=== PATIENT | female | born 1970 | race Two or more races ===

== ENCOUNTER 2024-02-22 19:49 | Inpatient (IN) | payer MEDICAID ==
[~2024-02-22] VITALS: Ht 162.6 cm; Wt 74.8 kg
[2024-02-22] MEDS: INSULIN REGULAR, HUMAN 1000 UNIT/10 ML VIAL IV ONE (00:20)
[2024-02-22 21:35] LABS: BASOPHILS % (AUTO) 0.3 % (0.0-2.0); EOSINOPHILS # (AUTO) 0.1 K/uL (0.0-0.7); EOSINOPHILS % (AUTO) 1.3 % (0.0-7.0); HEMOGLOBIN 12.4 g/dL (10.9-14.3); LYMPHOCYTES % (AUTO) 22.3 % (20.5-51.5); MEAN CORPUSCULAR HEMOGLOBIN 25.7 uug (24.7-32.8); MEAN CORPUSCULAR HGB CONC 33 g/dL (32.3-35.6); MEAN CORPUSCULAR VOLUME 78.6 fL (75.5-95.3); MONOCYTES # (AUTO) 0.7 K/uL (0.1-1.30); MONOCYTES % (AUTO) 7.7 % (0.0-11.0); NEUTROPHILS # (AUTO) 6.1 K/uL (1.8-8.9); NEUTROPHILS % (AUTO) 68.4 % (38.5-71.5); PLATELET COUNT (AUTO) 312 K/uL (179-408); RED BLOOD CELL COUNT(AUTO) 4.83 MIL/uL (3.63-4.92); RED CELL DISTRIBUTION WIDTH 15.2 % (12.3-17.7); WHITE BLOOD COUNT (AUTO) 8.9 K/uL (3.8-11.8)
[2024-02-22 21:36] LABS: DIFFERENTIAL COMMENT 1
[2024-02-22 21:56] LABS: *BILIRUBIN,URIN NEGATIVE (NEGATIVE); *BLOOD, URINE NEGATIVE (NEGATIVE); *CLARITY,URINE CLEAR (CLEAR); *COLOR,URINE YELLOW (YELLOW); *KETONES,URINE NEGATIVE (NEGATIVE); *PROTEIN,URINE NEGATIVE (NEGATIVE); *UROBILINOGEN,URINE 0.2 E.U./dl (NORMAL); LEUKOCYTE ESTERASE ,URINE NEGATIVE (NEGATIVE); NITRITE, URINE NEGATIVE (NEGATIVE); UGLUCOSE 2+ (NEGATIVE)
[2024-02-22 21:56] LABS: ALANINE AMINOTRANSFERASE 22 U/L (14-59); ALBUMIN 3.3 g/dL (3.4-5.0); ALKALINE PHOSPHATASE 86 U/L (50-136); ASPARTATE AMINOTRANSFERASE < 5 U/L (15-37); BILIRUBIN,DIRECT 0.1 mg/dL (0.0-0.2); BILIRUBIN,TOTAL 0.4 mg/dL (0.2-1.0); CALCIUM 8.7 mg/dL (8.5-10.1); CARBON DIOXIDE 30 mmol/L (21-32); CHLORIDE 101 mmol/L (98-107); CREATININE 0.8 mg/dL (0.6-1.3); NT-PRO BNP 88 pg/mL (0-125); POTASSIUM 4.3 mmol/L (3.5-5.1); SODIUM SERUM 135 mmol/L (136-145); TOTAL PROTEIN, SERUM 7.1 g/dL (6.4-8.2); UREA NITROGEN, BLOOD 12 mg/dL (7-18)
[2024-02-22] MEDS ORDERED: ONDANSETRON 4 MG/2 ML VIAL ONE (21:56)
[2024-02-22] MEDS ORDERED: MORPHINE SULFATE 4 MG/1 ML DISP.SYRIN ONE (21:57)
[2024-02-22 22:01] LABS: GLUCOSE 413 mg/dL (74-106)
[2024-02-22] MEDS: MORPHINE SULFATE 2 MG/1 ML DISP.SYRIN IV ONE (22:10)
[2024-02-22] MEDS: ONDANSETRON 4 MG/2 ML VIAL IV ONE (22:10)
[2024-02-23] MEDS ORDERED: HUM INSULIN NPH/REG INSULIN HM 70/30 1000 UNITS/10 ML VIAL SQ ONE (00:35)
[2024-02-23] MEDS ORDERED: METF-441 PO (02:16)
[2024-02-23] MEDS ORDERED: ATOR10TA PO (02:16)
[2024-02-23] MEDS ORDERED: GLIP5TAB13 PO (02:16)
[2024-02-23] MEDS ORDERED: MAGNESIUM HYDROXIDE 30 ML LIQUID UDC PO PRN (04:15)
[2024-02-23] MEDS ORDERED: REMEDY ESSENTIAL ZINC PASTE 113 GM TP PRN (04:15)
[2024-02-23] MEDS ORDERED: ACETAMINOPHEN 325 MG TABLET PO PRN (04:15)
[2024-02-23] MEDS ORDERED: ONDANSETRON 4 MG/2 ML VIAL IV PRN (04:15)
[2024-02-23] MEDS ORDERED: DEXTROSE 50% 50 ML DISP.SYRIN IV PRN (04:15)
[2024-02-23 08:00] VITALS: BP 121/71; TEMP 97; O2SAT 98
[2024-02-23] MEDS: BLOOD SUGAR DIAGNOSTIC 1 EACH STRIP VI SCH (08:13)
[2024-02-23 08:43] LABS: CALCIUM 8.3 mg/dL (8.5-10.1); CREATININE 0.6 mg/dL (0.6-1.3); MAGNESIUM 1.6 mg/dL (1.8-2.4); PHOSPHOROUS 2.8 mg/dL (2.5-4.9); POTASSIUM 3.9 mmol/L (3.5-5.1)
[2024-02-23] MEDS: PANTOPRAZOLE SODIUM 40 MG VIAL IV SCH (08:59)
[2024-02-23] MEDS: INSULIN REGULAR, HUMAN 1000 UNIT/10 ML VIAL SQ PRN (09:00)
[2024-02-23 09:08] LABS: BASOPHILS % (AUTO) 0.4 % (0.0-2.0); EOSINOPHILS # (AUTO) 0.1 K/uL (0.0-0.7); EOSINOPHILS % (AUTO) 1.3 % (0.0-7.0); HEMATOCRIT 37.8 % (31.2-41.9); HEMOGLOBIN 12.3 g/dL (10.9-14.3); LYMPHOCYTES # (AUTO) 1.8 K/uL (0.8-4.8); LYMPHOCYTES % (AUTO) 26.9 % (20.5-51.5); MEAN CORPUSCULAR HEMOGLOBIN 25.6 uug (24.7-32.8); MEAN CORPUSCULAR HGB CONC 33 g/dL (32.3-35.6); MEAN CORPUSCULAR VOLUME 78.4 fL (75.5-95.3); MONOCYTES # (AUTO) 0.4 K/uL (0.1-1.30); MONOCYTES % (AUTO) 6.5 % (0.0-11.0); NEUTROPHILS # (AUTO) 4.3 K/uL (1.8-8.9); NEUTROPHILS % (AUTO) 64.9 % (38.5-71.5); PLATELET COUNT (AUTO) 296 K/uL (179-408); RED BLOOD CELL COUNT(AUTO) 4.82 MIL/uL (3.63-4.92); RED CELL DISTRIBUTION WIDTH 14.8 % (12.3-17.7); WHITE BLOOD COUNT (AUTO) 6.7 K/uL (3.8-11.8)
[2024-02-23 09:10] LABS: DIFFERENTIAL COMMENT 1
[2024-02-23 12:00] VITALS: BP 121/56; TEMP 97.2; O2SAT 97
[2024-02-23] MEDS ORDERED: GLIM4TAB37 PO (12:18)
[2024-02-23] MEDS ORDERED: ATOR80TA PO (12:18)
[2024-02-23] MEDS ORDERED: ASPI81TA31 PO (12:18)
[2024-02-23] MEDS: MAGNESIUM OXIDE 400 MG TABLET PO ONE (13:42)
[2024-02-23 16:00] VITALS: BP 118/60; TEMP 97.2; O2SAT 97
[2024-02-23 19:30] VITALS: BP 133/67; TEMP 98.2; O2SAT 100
[2024-02-24 00:21] VITALS: BP 103/55; TEMP 97.6; O2SAT 95
[2024-02-24 04:26] VITALS: BP 144/77; TEMP 97.8; O2SAT 96
[2024-02-24 07:13] LABS: BASOPHILS % (AUTO) 0.4 % (0.0-2.0); EOSINOPHILS # (AUTO) 0.2 K/uL (0.0-0.7); EOSINOPHILS % (AUTO) 1.9 % (0.0-7.0); HEMOGLOBIN 12.9 g/dL (10.9-14.3); LYMPHOCYTES # (AUTO) 2.1 K/uL (0.8-4.8); LYMPHOCYTES % (AUTO) 27.3 % (20.5-51.5); MEAN CORPUSCULAR HEMOGLOBIN 25.8 uug (24.7-32.8); MEAN CORPUSCULAR HGB CONC 33 g/dL (32.3-35.6); MEAN CORPUSCULAR VOLUME 78.2 fL (75.5-95.3); MONOCYTES # (AUTO) 0.4 K/uL (0.1-1.30); MONOCYTES % (AUTO) 5.5 % (0.0-11.0); NEUTROPHILS # (AUTO) 5.1 K/uL (1.8-8.9); NEUTROPHILS % (AUTO) 64.9 % (38.5-71.5); PLATELET COUNT (AUTO) 302 K/uL (179-408); RED BLOOD CELL COUNT(AUTO) 4.99 MIL/uL (3.63-4.92); RED CELL DISTRIBUTION WIDTH 15.1 % (12.3-17.7); WHITE BLOOD COUNT (AUTO) 7.8 K/uL (3.8-11.8)
[2024-02-24 07:28] LABS: DIFFERENTIAL COMMENT 1
[2024-02-24 07:32] LABS: CALCIUM 8.4 mg/dL (8.5-10.1); CREATININE 0.6 mg/dL (0.6-1.3); POTASSIUM 4.1 mmol/L (3.5-5.1)
[2024-02-24 07:39] VITALS: BP 112/56; TEMP 97.2; O2SAT 97
[2024-02-24] MEDS: ASPIRIN 81 MG TAB.CHEW PO SCH (08:38)
[2024-02-24] MEDS: GLIMEPIRIDE 4 MG TABLET PO SCH (08:38)
[2024-02-24] MEDS: ATORVASTATIN 40 MG TABLET PO SCH (08:38)
[2024-02-24] MEDS ORDERED: LISI10TA29 PO (08:43)
[2024-02-24] MEDS: METFORMIN HCL 850 MG TABLET PO SCH (10:25)
== END 2024-02-24 11:45 | disposition home or self-care (01) | DRG 420 ==
LOC: ER 19:51 → TELE3 02-23 03:40
PROVIDERS: ATTEND Nurse Practitioner Acute Care
DX: E11.65 Type 2 diabetes mellitus with hyperglycemia (principal); E11.40 Type 2 diabetes mellitus with diabetic neuropathy, unspecified; R07.9 Chest pain, unspecified; E78.5 Hyperlipidemia, unspecified; I16.0 Hypertensive urgency; I10 Essential (primary) hypertension; E66.9 Obesity, unspecified; K57.30 Diverticulosis of large intestine without perforation or abscess without bleeding; Z68.28 Body mass index [BMI] 28.0-28.9, adult; Z79.84 Long term (current) use of oral hypoglycemic drugs; Z79.899 Other long term (current) drug therapy
CPT/HCPCS: 36415; 71045; 83690; 83735; 84100; 84484; 85025; 85730; 93307; A4663; G0378; J1815; J2270; J2405; J2470